=== PATIENT | male | born 1975 | race Caucasian/White ===

== ENCOUNTER 2016-03-29 14:39 | Emergency (ER) | payer OTHER ==
[2016-03-29 16:05] VITALS: BP 112/80
--- NOTE | 2016-03-29 16:53 | UC ---
sherron Reich Timothy, scribed for Karen Lopez MD on 03/29/16 at 1521 . Back Pain HPI - HPI Summary HPI Summary: Edilberto Ervin is a 41 yo male presenting to [facility] with 10/10 back pain for the past 10 years, worse in the past 2 months. His girlfriend is present in room. His pain extends from his neck to his lower back pain. He saw a chiropractor 2 months ago, who stated that he was not treatable. He states he has had chronic back pain for the past 10 years, since a tree fell on him, but he has not sought medical attention for it. He has recently been unable to ambulate without pain. He is taking advil with no relief. He states he also ripped a tendon off his right arm in 2010, and has had two surgeries (2011 and 11/2015) regarding his injury. His Hx includes chronic back pain, osteoarthritis, right carpal tunnel, right torn tendon, and kidney stones. He is a current 1 ppd smoker, and smokes marijuana daily. - History of Current Complaint Stated Complaint: BACK PAIN Time Seen by Provider: 03/29/16 16:22 Hx Obtained From: Patient Onset/Duration: Gradual Onset, Lasting Weeks, Still Present, Worse Since - past two months Timing: Constant Severity Initially: Moderate Severity Currently: Moderate Pain Intensity: 10 Pain Scale Used: 0-10 Numeric Back Pain: Is Diffuse Character: Aching Aggravating: Movement, Bending, Walking Alleviating: Nothing Associated Signs And Symptoms: Positive: Negative Related History: Previous Back Injury - Allergies/Home Medications Allergies/Adverse Reactions: Allergies Allergy/AdvReac Type Severity Reaction Status Date / Time Bee Venom Allergy Severe Anaphylatic Verified 03/29/16 15:56 Shock Amoxicillin Allergy Hives Verified 03/29/16 15:56 PMH/Surg Hx/FS Hx/Imm Hx Previously Healthy: No - chronic back pain - Surgical History Surgical History: Yes Surgery Procedure, Year, and Place: rt elbow 2011 - Family History Known Family History: Negative: Other - arthritis - Social History Alcohol Use: Rare Substance Use Type: Marijuana Substance Use Comment - Amount & Last Used: SMOKES DAILY WHEN POSSIBLE Smoking Status (MU): Current Every Day Smoker Type: Cigarettes Amount Used/How Often: 1 ppd Length of Time of Smoking/Using Tobacco: 26 years Have You Smoked in the Last Year: Yes Review of Systems Constitutional: Negative Skin: Negative Eyes: Negative ENT: Negative Respiratory: Negative Cardiovascular: Negative Gastrointestinal: Negative Genitourinary: Negative Motor: Negative Neurovascular: Negative Musculoskeletal: Other: - back pain from his neck to his lower back, pain in his right arm regarding previous injury and surgery. Neurological: Negative Psychological: Negative All Other Systems Reviewed And Are Negative: Yes Physical Exam Triage Information Reviewed: Yes Appearance: Well-Appearing, Well-Nourished, Pain Distress - mild Vital Signs: Initial Vital Signs Temp 97.9 F 03/29/16 15:57 Pulse 75 03/29/16 15:57 Resp 18 03/29/16 15:57 BP 112/80 03/29/16 15:57 Pulse Ox 99 03/29/16 15:57 Vital Signs Reviewed: Yes Eyes: Positive: Conjunctiva Clear ENT: Positive: Hearing grossly normal. Negative: Muffled/hoarse voice Neck: Positive: Supple, Nontender, No Lymphadenopathy Respiratory: Positive: Lungs clear, Normal breath sounds, No respiratory distress Cardiovascular: Positive: RRR, No Murmur, Pulses Normal, Brisk Capillary Refill Abdomen Description: Negative: CVA Tenderness (R), CVA Tenderness (L) Musculoskeletal: Positive: Strength Intact, ROM Intact Neurological: Positive: Alert, Muscle Tone Normal, Other: - bilateral patellar and ankle reflexes ++, A&O x3 CN II-XII intact Motor function 5/5 Sensations intact Gait WNL; able to walk on heels and toes Psychological Exam: Normal Skin Exam: Normal Back Pain Course/Dx - Course Course Of Treatment: Edilberto Ervin is a 41 yo male presenting to [facility] with 10/10 back pain for the past 10 years, worse in the past 2 months. [facility] was consulted, he has multiple Rx for hydrocodone, most recently from Dr. Mohini Hodge for 30 pills in December 16, 2015. After clinical examination and review of his UA results, Pt will be discharged home with tobacco abuse disorder and acute and chronic low back pain, as well as appropriate instructions. He is given 3 days supply of hydrocodone and Rx for muscle relaxant and advised that urgent care cannot treat his chronic condition. He is advised he needs to get a PCP (used to have Joanna) and that he should get established with orthopedics for back pain. UA results: color: yellow. character: clear. Bilirubin negative. Urobilinogen: normal. Ketones: negative. Ascorbic Acid: negative. Glucose: negative. Protein: negative. Blood: negative. pH: 5. Nitrite: negative. Specific [place]: 1.015 - Differential Dx/Diagnosis Differential Diagnosis/HQI/PQRI: Arthritis, Compressive Cord Syndrome, Herniated Disc, Strain, Sprain Provider Diagnoses: Tobacco abuse disorder, acute and chronic low back pain Discharge - Discharge Plan Condition: Stable Disposition: HOME Prescriptions: Cyclobenzaprine TAB* [Flexeril TAB*] 10 mg PO TID PRN #30 tab PRN Reason: Pain HYDROcodone/ACETAMIN 5-325 MG* [[place] 5-325 TAB*] 1 tab PO Q6H PRN #12 tab MDD 4 PRN Reason: Pain Patient Education Materials: Acute Low Back Pain (ED), Chronic Back Pain (ED) Referrals: [facility] [Outside] - 2 Days (to get a primary care provider ) Rito Chaney MD [Medical Doctor] - (This is the orthopedist in Dr. Hodge' s office. Call to get established for your back pain ) Additional Instructions: Please follow up with the primary care physician and orthopedist provided regarding your visit to urgent care today. Return to urgent care or the emergency department with any new or recurring symptoms. The documentation as recorded by the sherron lin Timothy accurately reflects the service I personally performed and the decisions made by me, Karen Lopez MD.
== END 2016-03-29 16:52 | disposition home or self-care (01) ==
LOC: UCEAST 14:39
DX: M54.5 Low back pain (principal); Z88.0 Allergy status to penicillin; F17.210 Nicotine dependence, cigarettes, uncomplicated
CPT/HCPCS: 81002; 99212; G0463